=== PATIENT | female | born 1985 | race Caucasian/White ===

== ENCOUNTER 2019-05-15 10:24 | Emergency (ER) | payer OTHER ==
[~2019-05-15] VITALS: Wt 79.0 kg
[~2019-05-15 10:24] MED LIST: CEPH-443 PO
[2019-05-15 10:29] VITALS: BP 140/93; PULSE 93; RESP 18
== END 2019-05-15 12:17 | disposition home or self-care (01) ==
LOC: FTE 10:24
DX: M54.5 Low back pain (principal); N39.0 Urinary tract infection, site not specified
CPT/HCPCS: 81003; 81025; Z7502; 99283